=== PATIENT | female | born 2000 | race Caucasian/White ===

== ENCOUNTER 2021-11-25 10:43 | Emergency (ER) | payer BC, OTHER, SELFPAY ==
--- NOTE | 2021-11-25 12:24 | RAD REPORT ---
EXAM DESCRIPTION: RAD - Elbow Left 3 View - 11/25/2021 11:44 am CLINICAL HISTORY: Left elbow pain status post trauma FINDINGS: There is suggestion of mild elevation of the anterior humeral fat pad as well as a subtle posterior humeral fat pad. In the setting of trauma this usually indicates a joint effusion secondary to an occult fracture. Radial head is the most often site of occult fracture. However, no fracture is visualized. No dislocation noted
--- NOTE | 2021-11-25 12:25 | RAD REPORT ---
EXAM DESCRIPTION: RAD - Forearm Left - 11/25/2021 11:44 am CLINICAL HISTORY: Left forearm pain status post injury FINDINGS: There is suggestion of mild elevation of the anterior humeral fat pad as well as a subtle posterior h umeral fat pad. In the setting of trauma this usually indicates a joint effusion secondary to an occu lt fracture. Radial head is the most often site of occult fracture. However, no fracture is visualized. No dislocation noted
--- NOTE | 2021-11-25 13:05 | ER ---
Nurse's Notes [facility] Name: Zulma Kurtz Age: 21 yrs Sex: Female : 2000 Arrival Date: 11/25/2021 Time: 10:49 Bed 17 Private MD: Diagnosis: Left Elbow Fracture Presentation: 11/25 11:02 Chief complaint: Patient states: Pt endorses L elbow pain that radiates to her L wrist ic1 d/t fall that occurred on last night. States she felt fine yesterday after fall but woke up this morning experiencing pain. Denies hitting her head and neg for blood thinners. Pt amb w steady gait. Coronavirus screen: Vaccine status: Patient reports being unvaccinated. Ebola Screen: No symptoms or risks identified at this time. Initial Sepsis Screen: Does the patient meet any 2 criteria? No. Patient's initial sepsis screen is negative. Does the patient have a suspected source of infection? No. Patient's initial sepsis screen is negative. Risk Assessment: Do you want to hurt yourself or someone else? Patient reports no desire to harm self or others. Onset of symptoms. 11:02 Method Of Arrival: Ambulatory ic1 11:02 Acuity: GLADIS 4 ic1 Triage Assessment: 11:05 General: Appears in no apparent distress. Behavior is calm, cooperative. Pain: ic1 Complains of pain in left arm. Musculoskeletal: Reports pain in left arm. 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 Flu vaccine is up to date. - Social history:: Smoking status: Patient denies any tobacco usage or history of. Screenin:57 Abuse screen: Denies threats or abuse. Denies injuries from another. Nutritional bp screening: No deficits noted. Tuberculosis screening: No symptoms or risk factors identified. Fall Risk None identified. Assessment: 10:56 General: SEE TRIAGE NOTE. bp 13:47 Reassessment: PT D/C HOME AMBULATORY. DECLINED SPLINT AND SLING. DX WITH DISTAL HUMERUS bp FX. Vital Signs: 11:02 BP 112 / 72; Pulse 88; Resp 18; Temp 98.0(O); Pulse Ox 99% on R/A; ic1 12:17 BP 111 / 68; Pulse 77; Resp 16; Pulse Ox 100% ; bp 13:46 BP 109 / 69; Pulse 75; Resp 20; Pulse Ox 100% ; bp ED Course: 10:49 Patient arrived in ED. am2 10:50 Alonso Bowers PA is PHCP. jmm 10:50 Munir Vidales MD is Attending Physician. jmm 10:56 Bill Crane, RN is Primary Nurse. bp 10:57 Patient has correct armband on for positive identification. Bed in low position. Call bp light in reach. Side rails up X2. 11:05 Triage completed. ic1 11:05 Arm band placed on. ic1 11:44 Elbow Left 3 View XRAY In Process Unspecified. EDMS 11:44 Forearm Left XRAY In Process Unspecified. EDMS 13:03 Sven Falcon MD is Referral Physician. jmm 13:47 No provider procedures requiring assistance completed. Patient did not have IV access bp during this emergency room visit. Administered Medications: No medications were administered Outcome: 13:04 Discharge ordered by MD. jmm 13:48 Discharged to home ambulatory. bp 13:48 Condition: stable 13:48 Discharge instructions given to patient, Instructed on discharge instructions, follow up and referral plans. Demonstrated understanding of instructions, follow-up care. 13:48 Patient left the ED. bp Signatures: Dispatcher [employer] EDMS Alonso Bowers PA PA Michell Storm am2 Bill Crane, RN RN bp Ambreen Granados RN RN ic1
--- NOTE | 2021-11-25 13:05 | EDPHYS ---
Physician Documentation [facility] Name: Zulma Kurtz Age: 21 yrs Sex: Female : 2000 Arrival Date: 11/25/2021 Time: 10:49 Bed 17 Private MD: ED Physician Munir Vidales HPI: 11/25 11:08 This 21 yrs old Female presents to ER via Ambulatory with complaints of Arm Injury - jmm left, Fall Injury. 11:08 The patient or guardian complains of injury, pain. Onset: The symptoms/episode jmm began/occurred acutely, 1 day(s) ago. Modifying factors: The symptoms are alleviated by remaining still, the symptoms are aggravated by rotating arm. Associated signs and symptoms: Pertinent positives: decreased range of motion, pain, Pertinent negatives: fever. The patient has not experienced similar symptoms in the past. Patient states she fell with her left arm extended while falling backwars. Pain localized to the mid forearm to the elbow. 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 Flu vaccine is up to date. - Social history:: Smoking status: Patient denies any tobacco usage or history of. ROS: 11:08 Constitutional: Negative for fever, chills, and weight loss, Cardiovascular: Negative jmm for chest pain, palpitations, and edema, Respiratory: Negative for shortness of breath, cough, wheezing, and pleuritic chest pain. 11:08 MS/extremity: Positive for injury or acute deformity, pain. 11:08 All other systems are negative. Exam: 11:08 Constitutional: This is a well developed, well nourished patient who is awake, alert, jmm and in no acute distress. Head/Face: atraumatic. Eyes: EOMI, no conjunctival erythema appreciated ENT: Moist Mucus Membranes Neck: Trachea midline, Supple Chest/axilla: Normal chest wall appearance and motion. Cardiovascular: Regular rate and rhythm. No edema appreciated Respiratory: Normal respirations, no respiratory distress appreciated Abdomen/GI: Non distended, soft Back: Normal ROM Skin: General appearance color normal 11:08 Musculoskeletal/extremity: left elbow pain on supination and pronation, compartments are soft, NVI. 11:08 Skin: Appearance: Color: normal in color. 11:08 Neuro: Orientation: is normal, Mentation: is normal, Memory: is normal. 11:08 Psych: Behavior/mood is pleasant, cooperative. Vital Signs: 11:02 BP 112 / 72; Pulse 88; Resp 18; Temp 98.0(O); Pulse Ox 99% on R/A; ic1 12:17 BP 111 / 68; Pulse 77; Resp 16; Pulse Ox 100% ; bp 13:46 BP 109 / 69; Pulse 75; Resp 20; Pulse Ox 100% ; bp Procedures: 13:03 Splinting: Splint applied to left arm using Orthoglass splint, sling, applied by tech. lara Examined by me, post splint application: neurovascular intact, 2+ distal pulses palpable, brisk capillary refill noted, Patient tolerated well. MDM: 11:08 Patient medically screened. [facility] 12:55 Data reviewed: vital signs, nurses notes. Counseling: I had a detailed discussion with lara the patient and/or guardian regarding: the historical points, exam findings, and any diagnostic results supporting the discharge/admit diagnosis, radiology results, the need for outpatient follow up, to return to the emergency department if symptoms worsen or persist or if there are any questions or concerns that arise at home. 11/25 11:08 Order name: Elbow Left 3 View XRAY; Complete Time: 12:29 [facility] 11/25 11:08 Order name: Forearm Left XRAY; Complete Time: 12:29 [facility] Administered Medications: No medications were administered Disposition: 15:27 Co-signature as Attending Physician, Munir Vidales MD I agree with the assessment and rn plan of care. Attestation: The patient's history, exam findings, diagnostics, and a summary of any interventions or procedures was reviewed in detail with Alonso MARRERO. Disposition Summary: 11/25/21 13:04 Discharge Ordered Location: Home [facility] Condition: Stable [facility] Diagnosis - Left Elbow Fracture [facility] Followup: [facility] - With: Sven Falcon MD - When: 2 - 3 days - Reason: Recheck today's complaints, Continuance of care, Re-evaluation by your physician Discharge Instructions: - Discharge Summary Sheet [facility] - Distal Humerus Elbow Fracture [facility] Forms: - Medication Reconciliation Form [facility] - Thank You Letter jmm - Antibiotic Education lionm - Prescription Opioid Use [facility] Signatures: Dispatcher [employer] EDAlonso Schwarz PA PA jmm Nieto, Roman, MD MD rn Creggett, Iesha, RN RN ic1 Corrections: (The following items were deleted from the chart) 13:46 12:30 Splint - Elbow - Posterior ordered. [facility] bp 13:46 12:30 Sling ordered. [facility] bp
[2021-11-25 13:54] VITALS: TEMP 98
[2021-11-25 13:55] VITALS: O2SAT 100
[2021-11-25 13:57] VITALS: BP 109/69
== END 2021-11-25 13:48 | disposition home or self-care (01) ==
LOC: ER 10:43
PROC: 2W39X1Z Immobilization of Left Upper Extremity using Splint (ICD-10-PCS; principal; 2021-11-25)
DX: S42.402A Unspecified fracture of lower end of left humerus, initial encounter for closed fracture (principal); W18.30XA Fall on same level, unspecified, initial encounter
CPT/HCPCS: 99283

== ENCOUNTER → 2024-01-19 | Emergency (ER) | payer SELFPAY ==
[~2024-01-19] MED LIST: NA CHLORIDE 0.9% 1,000 ML ONE
[2024-01-19 07:34] LABS: Absolute Monocytes 0.5 K/uL (0.1-1.3); Absolute Neutrophil 4.8 K/uL (1.8-8.0); Basophils % 0.5 % (0-1.3); Eosinophils % 0.2 % (0-4.4); Hematocrit 43.5 % (36.0-45.0); Hemoglobin 14.7 g/dL (12.0-15.0); MCH 30.7 pg (27.0-35.0); MCHC 33.7 g/dL (32.0-36.0); MCV 90.8 fL (80-100); MPV 8.4 fL (7.6-11.3); Neutrophils % 75.3 % (41.7-73.7); Platelets 262 thou/uL (152-406); RBC Red Blood Cell Count 4.78 M/uL (3.86-4.86); Red Cell Distribution Width 13.2 % (12.1-15.2)
[2024-01-19 07:43] LABS: Anion Gap 10.5 mEq/L (5.0-15.0); Potassium 3.5 mEq/L (3.5-5.1)
--- NOTE | 2024-01-19 09:14 | RAD REPORT ---
EXAM DESCRIPTION: CT - Head C Spine Cap Saadia Figueroa - 01/19/2024 8:35 am CLINICAL HISTORY: head and spinal injury COMPARISON: No comparisons TECHNIQUE: Head and cervical spine CT images were obtained without IV contrast. Chest, abdomen, and pelvis CT images were obtained following intravenous administration of iodinated contrast. Multiplana r reformats were generated and reviewed. All CT scans are performed using dose optimization technique as appropriate and may include automated exposure control or mA/KV adjustment according to patient size. FINDINGS: CT HEAD: No intracranial hemorrhage, mass effect, or edema. No evidence of acute territorial infarct. No midli ne shift or abnormal fluid collection. The ventricles are normal in caliber and configuration for age . Basal cisterns are patent. Mastoid aircells and paranasal sinuses are clear. No acute skull fractur e. CT CERVICAL SPINE: No acute cervical spine fracture or subluxation. Vertebral body heights are well maintained. Facet charla ints are normal in alignment. No hyperattenuating canal hematoma. Prevertebral and paraspinous soft t issues are unremarkable. CT CHEST: No pneumothorax, pulmonary contusion or pleural fluid collection. Incidentally noted 5 mm right lower lobe nodule on axial image 42, likely benign. No mediastinal hematoma and the aorta and pulmonary ar teries are unremarkable. No chest will mass or abnormal axillary finding. No displaced rib fracture o r other significant bony finding. CT ABDOMEN/ PELVIS: No evidence of traumatic injury to solid abdominal viscera. Gallbladder and biliary tree are unremark able. No bowel injury or significant finding. No free air, free fluid or abnormal fat stranding. No u rinary bladder abnormality. IUD in place. Bladder is markedly distended. No significant bony finding. IMPRESSION: No acute traumatic findings. Incidental findings as above.
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
[2024-01-19 11:03] VITALS: BP 115/86; TEMP 97.5; O2SAT 99
== END ==
LOC: ER 06:29
DX: S16.1XXA Strain of muscle, fascia and tendon at neck level, initial encounter (principal); S39.012A Strain of muscle, fascia and tendon of lower back, initial encounter; S29.012A Strain of muscle and tendon of back wall of thorax, initial encounter; T14.8XXA Other injury of unspecified body region, initial encounter; V48.5XXA Car driver injured in noncollision transport accident in traffic accident, initial encounter
CPT/HCPCS: 36415; 70450; 71260; 72125; 74177; 80048; 84703; 85025; 86850; 86900; 86901; 99284; J7030; Q9967

== ENCOUNTER 2024-09-03 16:46 | Emergency (ER) | payer OTHER ==
--- NOTE | 2024-09-03 17:16 | ER ---
Nurse's Notes [facility] Name: Zulma Kurtz Age: 23 yrs Sex: Female : 2000 Arrival Date: 09/03/2024 Time: 16:46 Bed 17 Private MD: Diagnosis: Other hemorrhoids Presentation: 09/03 16:55 Chief complaint: Patient states: I have a hemorrhoid that is very painful. Coronavirus ko1 screen: At this time, the client does not indicate any symptoms associated with coronavirus-19. Ebola Screen: No symptoms or risks identified at this time. Initial Sepsis Screen: Does the patient meet any 2 criteria? No. Patient's initial sepsis screen is negative. Does the patient have a suspected source of infection? No. Patient's initial sepsis screen is negative. Risk Assessment: Do you want to hurt yourself or someone else? Patient reports no desire to harm self or others. Onset of symptoms is unknown. 16:55 Method Of Arrival: Ambulatory ko1 16:55 Acuity: GLADIS 4 ko1 Triage Assessment: 16:58 General: Appears in no apparent distress. Behavior is calm, cooperative, appropriate ko1 for age. Pain: Complains of pain in rectal area. Historical: - Allergies: 16:58 No Known Allergies; ko1 - Home Meds: 16:58 None [Active]; ko1 - PMHx: 16:58 Anxiety; ko1 - PSHx: 16:58 right knee; Skin cancer removal; ko1 - Immunization history:: Adult Immunizations up to date. - Infectious Disease History:: Denies. - Social history:: Smoking status: Patient denies any tobacco usage or history of. Screenin:15 [facility] ED Fall Risk Assessment (Adult) History of falling in the last 3 months, kc6 including since admission No falls in past 3 months (0 pts) Confusion or Disorientation No (0 pts) Intoxicated or Sedated No (0 pts) Impaired Gait No (0 pts) Mobility Assist Device Used No (0 pt) Altered Elimination No (0 pt) Score/Fall Risk Level 0 - 2 = Low Risk Oriented to surroundings. Abuse screen: Denies threats or abuse. Denies injuries from another. Nutritional screening: No deficits noted. Tuberculosis screening: No symptoms or risk factors identified. Assessment: 17:15 General: Appears in no apparent distress. comfortable, well groomed, well developed, kc6 Behavior is calm, cooperative, appropriate for age. Pain: Complains of pain in gluteal cleft. Neuro: Level of Consciousness is awake, alert, obeys commands, Oriented to person, place, time, situation, Appropriate for age. Cardiovascular: Capillary refill < 3 seconds. Respiratory: Airway is patent Trachea midline Respiratory effort is even, unlabored, Respiratory pattern is regular, symmetrical. GI: Reports hemorrhoids, Patient currently denies abdominal pain, diarrhea, nausea, vomiting. : No signs and/or symptoms were reported regarding the genitourinary system. EENT: No signs and/or symptoms were reported regarding the EENT system. Derm: No signs and/or symptoms reported regarding the dermatologic system. Skin is intact, is healthy with good turgor, Skin is pink, warm \T\ dry. Musculoskeletal: No signs and/or symptoms reported regarding the musculoskeletal system. Circulation, motion, and sensation intact. Capillary refill < 3 seconds, Range of motion: intact in all extremities. Vital Signs: 16:55 BP 109 / 75; Pulse 77; Resp 16; Temp 97.2; Pulse Ox 100% ; ko1 ED Course: 16:49 Patient arrived in ED. mg5 16:50 [facility] Shine [facility] sb4 16:50 Munir Vidales MD is Attending Physician. sb4 16:58 Triage completed. ko1 16:58 Arm band placed on right wrist. Patient placed in an exam room, on a stretcher, Patient ko1 notified of wait time. 17:05 Kelle Guidry RN is Primary Nurse. kc6 17:15 Alexey Chakraborty MD is Referral Physician. sb4 17:15 Patient has correct armband on for positive identification. Bed in low position. Call kc6 light in reach. Side rails up X 1. Adult w/ patient. Pulse ox on. NIBP on. Door closed. Noise minimized. Lights dimmed. Pillow given. 17:15 Patient maintains SpO2 saturation greater than 95% on room air. kc6 17:29 No provider procedures requiring assistance completed. Patient did not have IV access kc6 during this emergency room visit. Administered Medications: 17:28 Drug: Lidocaine Mucous Membrane Gel 2 % 1 application Mucous Membrane once; onto kc6 hemorrhoid Route: Mucous Membrane; 17:29 Follow up: Response: No adverse reaction kc6 17:29 Drug: Ketorolac IM 30 mg IM once Route: IM; Site: left deltoid; kc6 17:29 Follow up: Response: No adverse reaction kc6 Medication: 17:29 VIS not applicable for this client. kc6 Outcome: 17:16 Discharge ordered by . [email or web address] 17:29 Discharged to home ambulatory, kc6 17:29 Condition: good 17:29 Discharge instructions given to patient, Instructed on discharge instructions, follow up and referral plans. medication usage, Demonstrated understanding of instructions, follow-up care, medications, Prescriptions given X 2, 17:29 Patient left the ED. kc6 Signatures: Kelle Guidry RN RN kc6 Myriam Dhillon RN RN ko1 Otilia Shine PA-C PADon [email or web address] Sandi Rodriguez mg5 Corrections: (The following items were deleted from the chart) 16:58 16:50 Chief complaint: ko1 ko1
--- NOTE | 2024-09-03 17:16 | EDPHYS ---
Physician Documentation [facility] Name: Zulma Kurtz Age: 23 yrs Sex: Female : 2000 Arrival Date: 09/03/2024 Time: 16:46 Bed 17 Private MD: ED Physician Munir Vidales HPI: 09/03 17:18 This 23 yrs old Female presents to ER via Ambulatory with complaints of Hemorrhoids. sb4 17:18 The patient presents to the emergency department with pain in the rectal area, that is sb4 moderate. Onset: The symptoms/episode began/occurred 3 day(s) ago. Context: the patient has a known history of hemorrhoids. Modifying factors: The symptoms are alleviated by nothing, The symptoms are aggravated by bowel movement. Associate signs and symptoms: Pertinent positives: lower GI bleeding, on toilet paper, Pertinent negatives: abdominal pain, constipation, diarrhea, dysuria, fever, vomiting. The patient has experienced similar episodes in the past, a few times, but today's symptoms are worse, lasting longer. The patient has not recently seen a physician. Historical: - Allergies: 16:58 No Known Allergies; ko1 - Home Meds: 16:58 None [Active]; ko1 - PMHx: 16:58 Anxiety; ko1 - PSHx: 16:58 right knee; Skin cancer removal; ko1 - Immunization history:: Adult Immunizations up to date. - Infectious Disease History:: Denies. - Social history:: Smoking status: Patient denies any tobacco usage or history of. ROS: 17:18 Constitutional: Negative for fever, chills, and weight loss, sb4 17:18 Abdomen/GI: Positive for rectal pain, rectal bleeding, 17:18 All other systems are negative, Exam: 17:18 Constitutional: This is a well developed, well nourished patient who is awake, alert, sb4 and in no acute distress. Head/Face: Normocephalic, atraumatic. Eyes: Extra-ocular motions intact. Periorbital areas with no swelling, redness, or edema. ENT: Mucous membranes moist. 17:18 Abdomen/GI: Rectal exam: hemorrhoid(s), external, with inflammation, with pain, with thrombosis, without bleeding, Vital Signs: 16:55 BP 109 / 75; Pulse 77; Resp 16; Temp 97.2; Pulse Ox 100% ; ko1 MDM: 16:56 Medical Screening Exam initiated sb4 17:19 Data reviewed: vital signs, nurses notes, and as a result, I will discharge patient. sb4 Counseling: I had a detailed discussion with the patient and/or guardian regarding the historical points, exam findings, and any diagnostic results supporting the discharge/admit diagnosis, to return to the emergency department if symptoms worsen or persist or if there are any questions or concerns that arise at home. Administered Medications: 17:28 Drug: Lidocaine Mucous Membrane Gel 2 % 1 application Mucous Membrane once; onto kc6 hemorrhoid Route: Mucous Membrane; 17:29 Follow up: Response: No adverse reaction kc6 17:29 Drug: Ketorolac IM 30 mg IM once Route: IM; Site: left deltoid; kc6 17:29 Follow up: Response: No adverse reaction kc6 Disposition: 17:38 Co-signature as Attending Physician, Munir Vidales MD I reviewed the patient's care rn provided by the Advanced Practice Provider and agree with the diagnosis and treatment plan. Disposition Summary: 09/03/24 17:16 Discharge Ordered Notes: Location: Home sb4 Problem: new sb4 Symptoms: have improved sb4 Condition: Stable sb4 Diagnosis - Other hemorrhoids sb4 Followup: sb4 - With: Alexey Chakraborty MD - When: 1 week - Reason: Recheck today's complaints, Re-evaluation by your physician Discharge Instructions: - Discharge Summary Sheet sb4 - How to Take a Sitz Bath sb4 - Hemorrhoids, [id number] sb4 Forms: - Patient Portal Instructions sb4 - Leadership Thank You Letter sb4 Prescriptions: - Colace 100 mg Oral Tablet - take 1 tablet ORAL route every 12 hours; 14 tablet; Refills: 0, Product sb4 Selection Permitted - Anusol-HC 25 mg Rectal Suppository - insert 1 suppository RECTAL route every 12 hours As needed; 20 suppository; sb4 Refills: 0, Product Selection Permitted Signatures: Munir Vidales MD MD rn Campbell, Kaitlyn, RN RN kc6 Myriam Dhillon RN RN [email or web address] Otilia Shine PA-C PA-C sb4
[2024-09-03] MEDS ORDERED: LIDOCAINE VISCOUS 2% 10ML ORAL SOLN ONE (17:22)
[2024-09-03] MEDS ORDERED: KETOROLAC 30 MG/ML INJ ONE (17:22)
[2024-09-03 17:42] VITALS: BP 109/75; TEMP 97.2; O2SAT 100
== END 2024-09-03 17:29 | disposition home or self-care (01) ==
LOC: ER 16:46
DX: K64.8 Other hemorrhoids (principal)
CPT/HCPCS: 96372; 99284